=== PATIENT | female | born 1955 | race Caucasian/White ===

== ENCOUNTER → 2016-11-15 | Day surgery (SDC) | payer OTHER ==
[2016-11-10 09:52] VITALS: Ht 157.5 cm; Wt 46.4 kg
[~2016-11-15] VITALS: Ht 157.5 cm; Wt 46.4 kg
[~2016-11-15] MED LIST: ACET1TAB84 PO; AMLO-114 PO; ASPCH81X PO; B-COTAB53 PO; CALC500C70 PO; CHOL100027 PO; CINN1CAP2 PO; CLON1TAB3 PO; DEPOMEDROL INJ; FISHOIL PO; FLUT0.15 NAE; GING1CAP2 PO; GLUCTAB18 PO; LACTCAP3 PO; LEVO1TAB PO; LIDOCAINE HCL 2% 2 ML VIAL (20MG/ML) ONE; LIOT5TAB PO; MAGN1TAB19 PO; MODA100T17 PO; MONT1TAB5 PO; MULT-730 PO; NASONEX NAE; NMN10 PO; POTA1080 PO; PROPOFOL IV EMULSION 10 MG/ML 20 ML VIAL IV ONE; ROPI1TAB PO; SODIUM CHLORIDE 0.9% 500ML 500 ML IV ONE; TIZA4CAP PO; TURM1CAP4; VITA400C3 PO; [UNRECOGNIZED DRUG - CODE] PO
--- NOTE | 2016-11-15 11:37 | Endo History and Physical ---
History & Physical Date of Service: Nov 15, 2016. Chief Complaint: nausea; weight loss Referring Physician: Dr. Carrera History of Present Illness nausea and weight loss Past Medical History Other Psy. Disorders, Osteoporosis, Arthritis, Anxiety, Thyroid Disease, CVA/TIA , Depression Past Surgical History Hx Cardiac Surgery: No Hx Internal Defibrillator: No Hx Pacemaker: No Hx Abdominal Surgery: Yes (TUBAL LIGATION) Hx of Implantable Prosthesis: No Hx Post-Op Nausea and Vomiting: No Hx Cancer Surgery: No Hx Thoracic Surgery: No Hx Orthopedic: No Hx Urinary Tract Surgery: No (T AND A) Social History Smoking Status: Light Tobacco Smoker Hx Substance Use: No Hx Alcohol Use: Yes (SOBER X23 YEARS) Allergies Coded Allergies: Codeine (Verified Allergy, Mild, HIVES, 11/10/16) Morphine (Verified Allergy, Mild, "CAUSES RAGE", 11/10/16) Paroxetine (Verified Allergy, Mild, "ANGER ISSUES", 11/10/16) Venlafaxine (Verified Allergy, Mild, "ANGER ISSUES", 11/10/16) Alendronate (Verified Allergy, Unknown, "SUPERVISOR STATEMENT CLERKS DOES NOT WANT ME TO USE", 11/10/16) Aromatic Oils (Verified Allergy, Unknown, ANY WITH FLAVOR OR AROMA-CAN'T BREATHE NAUSEA AND VOMITNG, 11/15/16) Celecoxib (Verified Allergy, Unknown, "RISK FOR GI ULCERS", 11/10/16) Chloride (Verified Allergy, Unknown, "SHUTS OFF THYROID MEDICINE AND END UP IN PSYCH LEONARD", 11/10/16) Citalopram (Verified Allergy, Unknown, HALLUCINATIONS, 11/15/16) Dexamethasone (Verified Allergy, Unknown, DIDN'T WORK ON PAIN-AGGRAVATED PAIN, 11/15/16) Diclofenac (Verified Allergy, Unknown, "RISK FOR GI ULCERS", 11/10/16) Diflunisal (Verified Allergy, Unknown, "RISK FOR GI ULCERS", 11/10/16) Etodolac (Verified Allergy, Unknown, RISK FOR GI UPSET, 11/15/16) Etofamide (Verified Allergy, Unknown, "RISK FOR GI ULCERS", 11/10/16) Fenoprofen (Verified Allergy, Unknown, UNKNOWN, 11/15/16) Gabapentin (Verified Allergy, Unknown, ANAPHYLAXIS, ITCHING, AND VOMITING , 11/10/16) Indomethacin (Verified Allergy, Unknown, RISK FOR GI BLEED, 11/15/16) Iodine (Verified Allergy, Unknown, RASH, 11/15/16) Ketoprofen (Verified Allergy, Unknown, UNKNOWN, 11/15/16) Milnacipran (Verified Allergy, Unknown, KNOCKS ME OUT, 11/15/16) NSAIDs (Verified Allergy, Unknown, "RISK FOR ULCERS", 11/10/16) Nabumetone (Verified Allergy, Unknown, "RISK FOR GI ULCERS", 11/10/16) Oxaprozin (Verified Allergy, Unknown, "RISK FOR GI ULCERS", 11/10/16) Peanut Oil (Verified Allergy, Unknown, ANAPHYLAXIS,PROJECTILE VOMITING, 03/24) Piroxicam (Verified Allergy, Unknown, "RISK FOR GI ULCERS", 11/10/16) Risedronate (Verified Allergy, Unknown, "SUPERVISOR STATEMENT CLERKS DOES NOT WANT ME TO USE", 11/10/16) Soy Allergy (Verified Allergy, Unknown, unknown, 11/10/16) Sulindac (Verified Allergy, Unknown, "RISK FOR GI ULCERS", 11/10/16) Tolmetin (Verified Allergy, Unknown, "RISK FOR GI ULCERS", 11/10/16) Opioid Analgesics (Verified Adverse Reaction, Unknown, "BLACKS OUT", ) Procaine (Verified Adverse Reaction, Unknown, " I don't get numb", 11/10/16) Current Medications Reported Home Medications Medications Dose Route/Sig Max Daily Dose Days Date Category Tylenol Arthritis Ext Rel (Acetaminophen) 650 Mg Cplt 975 Mg PO TID 11/10/16 Reported Cinnamon 500 Mg Cap 500 Mg PO QAM 11/10/16 Reported [Nasonex] 2 Sprays BENJAMIN QAM 11/10/16 Reported Namenda (Memantine) 10 Mg Tab 10 Mg PO BID 11/10/16 Reported [Depomedrol] 1 Dose INJ [id number] 11/10/16 Reported Cytomel (Liothyronine Sodium) 5 Mcg Tab 5 Mcg PO QAM 11/10/16 Reported Norvasc (Amlodipine Besylate) 10 Mg Tab 10 Mg PO QAM 11/10/16 Reported Montelukast Sodium 10 Mg Tab 1 Tab PO QAM 90 11/10/16 Reported Provigil (Modafinil) 100 Mg Tab 300 Mg PO QAM 11/10/16 Reported Os-Nick 500 Plus D (Calcium/Vitamin D) Tab 1 Tab PO 1300 11/10/16 Reported Urocit-K (Potassium Citrate) 10 Meq Tab 275 Mg PO QAM 07/30/15 Reported Alive Womens 50+ (Multiple Vitamins W/ Minerals) 1 Tab Tab 1 Tab PO 1300 07/22/15 Reported B Complex (B-Complex W/ Folic Acid) 1 Tab Tab 1 Tab PO QAM 07/22/15 Reported Flonase Allergy Relief (Fluticasone Propionate (Nasal)) 50 Mcg/Act Spr 2 Sprays BENJAMIN BID 07/22/15 Reported Magnesium Oxide (Magnesium Oxide (Mg Supplement) 400 Mg Tab 1 Tab PO QPM 07/22/15 Reported Requip (Ropinirole Hydrochloride) 1 Mg Tab 2 Mg PO HS 07/22/15 Reported Synthroid (Levothyroxine Sodium) 0.137 Mg Tab 0.137 Mg PO QAM 07/22/15 Reported Zanaflex (Tizanidine HCl) 4 Mg Cap 4 Mg PO TID PRN 07/22/15 Reported Osteo Bi-Flex Regular Str (Glucosamine-Chondroitin) 1 Tab Tab 2 Tablets PO QAM 02/04/13 Reported Acidophilus (Lactobacillus) 1 Cap Cap 1 Capsules PO QAM 02/04/13 Reported Turmeric (Turmeric (Curcuma Longa)) 500 Mg Cap 1,000 Mg TID 02/04/13 Reported Vitamin C Sr (Ascorbic Acid) 500 Mg Cap 1,000 Mg PO QID 02/04/13 Reported Helen Root (Helen (Zingiber Officinalis)) 250 Mg Cap 500 Mg PO QID 02/04/13 Reported Webster-3 (Fish Oil) Oil 1 Cap PO QID 06/22/12 Reported Aspirin Chewable (Aspirin) 81 Mg Chew 81 Mg PO QPM 06/22/12 Reported Vitamin E 400 Iu (Vitamin E) 400 Unit Cap 400 Inter.unit PO QAM 06/08/12 Reported Vitamin D 1000 Unit (Cholecalciferol) 1,000 Unit Cap 2,000 Inter.unit PO QAM 06/08/12 Reported Klonopin (Clonazepam) 1 Mg Tab 1 Mg PO QID 06/08/12 Reported Vital Signs Weight (Kilograms): 46.36 Height (Feet): 5 Height (Inches): 2 Physical Exam General Appearance: WD/WN, no apparent distress Assessment and Plan EGD today
--- NOTE | 2016-11-15 12:10 | Discharge Instructions ---
Endoscopy Patient Instructions Date / Procedure(s) Performed Nov 15, 2016. EGD Allergy Information Coded Allergies: Codeine (Verified Allergy, Mild, HIVES, 11/10/16) Morphine (Verified Allergy, Mild, "CAUSES RAGE", 11/10/16) Paroxetine (Verified Allergy, Mild, "ANGER ISSUES", 11/10/16) Venlafaxine (Verified Allergy, Mild, "ANGER ISSUES", 11/10/16) Alendronate (Verified Allergy, Unknown, "PIPE FOREMAN DOES NOT WANT ME TO USE", 11/10/16) Aromatic Oils (Verified Allergy, Unknown, ANY WITH FLAVOR OR AROMA-CAN'T BREATHE NAUSEA AND VOMITNG, 11/15/16) Celecoxib (Verified Allergy, Unknown, "RISK FOR GI ULCERS", 11/10/16) Chloride (Verified Allergy, Unknown, "SHUTS OFF THYROID MEDICINE AND END UP IN PSYCH LEONARD", 11/10/16) Citalopram (Verified Allergy, Unknown, HALLUCINATIONS, 11/15/16) Dexamethasone (Verified Allergy, Unknown, DIDN'T WORK ON PAIN-AGGRAVATED PAIN, 11/15/16) Diclofenac (Verified Allergy, Unknown, "RISK FOR GI ULCERS", 11/10/16) Diflunisal (Verified Allergy, Unknown, "RISK FOR GI ULCERS", 11/10/16) Etodolac (Verified Allergy, Unknown, RISK FOR GI UPSET, 11/15/16) Etofamide (Verified Allergy, Unknown, "RISK FOR GI ULCERS", 11/10/16) Fenoprofen (Verified Allergy, Unknown, UNKNOWN, 11/15/16) Gabapentin (Verified Allergy, Unknown, ANAPHYLAXIS, ITCHING, AND VOMITING , 11/10/16) Indomethacin (Verified Allergy, Unknown, RISK FOR GI BLEED, 11/15/16) Iodine (Verified Allergy, Unknown, RASH, 11/15/16) Ketoprofen (Verified Allergy, Unknown, UNKNOWN, 11/15/16) Milnacipran (Verified Allergy, Unknown, KNOCKS ME OUT, 11/15/16) NSAIDs (Verified Allergy, Unknown, "RISK FOR ULCERS", 11/10/16) Nabumetone (Verified Allergy, Unknown, "RISK FOR GI ULCERS", 11/10/16) Oxaprozin (Verified Allergy, Unknown, "RISK FOR GI ULCERS", 11/10/16) Peanut Oil (Verified Allergy, Unknown, ANAPHYLAXIS,PROJECTILE VOMITING, 03/24) Piroxicam (Verified Allergy, Unknown, "RISK FOR GI ULCERS", 11/10/16) Risedronate (Verified Allergy, Unknown, "PIPE FOREMAN DOES NOT WANT ME TO USE", 11/10/16) Soy Allergy (Verified Allergy, Unknown, unknown, 11/10/16) Sulindac (Verified Allergy, Unknown, "RISK FOR GI ULCERS", 11/10/16) Tolmetin (Verified Allergy, Unknown, "RISK FOR GI ULCERS", 11/10/16) Opioid Analgesics (Verified Adverse Reaction, Unknown, "BLACKS OUT", ) Procaine (Verified Adverse Reaction, Unknown, " I don't get numb", 11/10/16) Discharge Date / Findings Nov 15, 2016. gastritis Medication Instructions Stopped Medication(s): stopped Tumeric and tin 5 days ago,took ASA last kylah Restart Stopped Medication(s): Ok to resume all prescription medications Stop taking tumeric. Provider Instructions Activity Restrictions - No exercising or heavy lifting for 24 hours. - Do not drink alcohol the day of the procedure. - Do not drive a car or operate machinery until the day after the procedure. - Do not make any important decisions or sign important papers in 24 hours after the procedure. Following Day: - Return to full activity which may include returning to work/school. Diet Start your diet with liquids and light foods (jello, soup, juice, toast). Then eat your usual diet if not nauseated. Treatment For Common After Affects For mild abdominal pain, bloating, or excessive gas: - Rest - Eat lightly - Lie on right side Follow-Up Information Follow-up with Dr. Dejuan Huertas as scheduled Anesthesia Information What You Should Know You have had a procedure that required some medicine to reduce anxiety and discomfort. This treatment is called moderate sedation. After receiving the treatment, you may be sleepy, but you will be able to breathe on your own. The effects of the treatment may last for several hours. Follow these instructions along with Activity/Diet recommendations noted above: * Do NOT do anything where dizziness or clumsiness would be dangerous. * Rest quietly at home today, then you can be up and about tomorrow. * Have a responsible person stay with you the rest of today. * You may have had an I.V. today. If so, you may take the dressing off later today. Recommendations Call your doctor if: * Trouble breathing * Continuous vomiting for more than 24 hours * Temperature above 101 degrees * Severe abdominal pain or bloating * Pain not relieved by pain medicine ordered * There is increased drainage or redness from any incision * A large amount of rectal bleeding greater than 2-3 tablespoons. (If you had a polyp/s removed or have hemorrhoids, a small amount of blood - from the rectum is to be expected.) * You have any unanswered questions or concerns. IN THE EVENT OF A SERIOUS EMERGENCY, GO TO THE NEAREST EMERGENCY ROOM Your discharge instructions were prepared by provider Judy Carrera. Patient Instructions Signature Page Nohemi Parra-Marco A Patient (or Guardian) Signature/Date: I have read and understand the instructions given to me by my caregivers. Caregiver/RN/Doctor Signature/Date: The above-named patient and/or guardian has received patient instructions on this date. + Original Patient Signature Page (only) stays with chart. Please make copy for patient.
--- NOTE | 2016-11-15 12:13 | GI REPORT ---
Procedure Date: 11/15/2016 11:43 AM Procedure: Upper GI endoscopy Indications: Epigastric abdominal pain, Nausea Medicines: Propofol per Anesthesia Complications: No immediate complications. Estimated blood loss: Minimal. Estimated Blood Loss: Estimated blood loss was minimal. Procedure: Pre-Anesthesia Assessment: - Prior to the procedure, a History and Physical was performed, and patient medications, allergies and sensitivities were reviewed. The patient's tolerance of previous anesthesia was reviewed. - The risks and benefits of the procedure and the sedation options and risks were discussed with the patient. All questions were answered and informed consent was obtained. - Patient identification and proposed procedure were verified prior to the procedure by the physician and the nurse. The procedure was verified in the pre-procedure area in the procedure room. - Mental Status Examination: alert and oriented. Airway Examination: normal oropharyngeal airway and neck mobility. Respiratory Examination: clear to auscultation. CV Examination: normal. Abdominal Examination: bowel sounds present, abdomen soft and non-tender, no masses or organomegaly noted. - ASA Grade Assessment: III - A patient with severe systemic disease. After obtaining informed consent, the endoscope was passed under direct vision. Throughout the procedure, the patient's blood pressure, pulse, and oxygen saturations were monitored continuously. The Scope was introduced through the mouth, and advanced to the second part of duodenum. The upper GI endoscopy was accomplished without difficulty. The patient tolerated the procedure well. Findings: The esophagus was normal. Inflammation characterized by erosions and erythema was found in the gastric body. Biopsies were taken with a cold forceps for Helicobacter pylori testing. Verification of patient identification for the specimen was done by the physician and nurse using the patient's name and date. Estimated blood loss was minimal. The examined duodenum was normal. Impression: - Normal esophagus. - Gastritis. Biopsied. - Normal examined duodenum. Recommendation: - Await pathology results. - Follow an antireflux regimen. - Continue present medications. - Return to referring physician as previously scheduled. - Discharge patient to home. Judy Carrera D.O. Judy Carrera, 11/15/2016 12:12:56 PM This report has been signed electronically. Note Initiated On: 11/15/2016 11:43 AM I attest to the content of the Intraoperative Record and orders documented therein, exceptions below
--- NOTE | 2016-11-15 12:23 | Anesthesiology Progress Note ---
Anesthesia Post Op Note Date & Time Nov 15, 2016 at 12:22 Vital Signs Vital Signs Past 12 Hours Date Time Temp Pulse Resp B/P (MAP) Pulse Ox O2 Delivery O2 Flow Rate FiO2 11/15/16 12:18 57 16 98/48 (65) 98 Room Air 11/15/16 11:44 36.8 66 20 136/58 (84) 98 Room Air Notes Mental Status: alert / awake / arousable, participated in evaluation Pt Amnestic to Procedure: Yes Nausea / Vomiting: adequately controlled Pain: adequately controlled Airway Patency, RR, SpO2: stable & adequate BP & HR: stable & adequate Hydration State: stable & adequate Anesthetic Complications: no major complications apparent
[2016-11-15 12:45] VITALS: BP 129/64; PULSE 66; O2SAT 97
== END | disposition home or self-care (01) ==
LOC: C.GI 11:22
PROVIDERS: ATTEND Internal Medicine
DX: R11.0 Nausea (principal); R63.4 Abnormal weight loss; R10.13 Epigastric pain; M81.0 Age-related osteoporosis without current pathological fracture; M19.90 Unspecified osteoarthritis, unspecified site; F32.9 Major depressive disorder, single episode, unspecified; F17.200 Nicotine dependence, unspecified, uncomplicated; Z86.73 Personal history of transient ischemic attack (TIA), and cerebral infarction without residual deficits

== ENCOUNTER → 2017-01-06 | Outpatient (CLI) | payer OTHER ==
[~2017-01-06] MED LIST changes: -B-COTAB53 PO; -LIDOCAINE HCL 2% 2 ML VIAL (20MG/ML) ONE; -NASONEX NAE; -PROPOFOL IV EMULSION 10 MG/ML 20 ML VIAL IV ONE; -SODIUM CHLORIDE 0.9% 500ML 500 ML IV ONE
[2017-01-06 13:43] LABS: THYROID STIMULATING HORMONE 0.155 uIu/ml (0.300-4.500)
[2017-01-08 10:39] LABS: T3 TOTAL 110 ng/dL (76-181)
== END | disposition home or self-care (01) ==
LOC: C.LAB1850 11:33
PROVIDERS: ATTEND Internal Medicine Endocrinology, Diabetes & Metabolism
DX: E05.00 Thyrotoxicosis with diffuse goiter without thyrotoxic crisis or storm (principal)

== ENCOUNTER → 2017-03-24 | Outpatient (CLI) | payer OTHER ==
[2017-03-24 16:01] LABS: THYROID STIMULATING HORMONE 0.989 uIu/ml (0.300-4.500)
== END | disposition home or self-care (01) ==
LOC: C.LAB1850 14:07
PROVIDERS: ATTEND Internal Medicine Endocrinology, Diabetes & Metabolism
DX: E89.0 Postprocedural hypothyroidism (principal)

== ENCOUNTER → 2017-04-24 | Outpatient (CLI) | payer OTHER ==
[2017-04-24 13:57] LABS: THYROID STIMULATING HORMONE 2.4 uIu/ml (0.300-4.500)
== END | disposition home or self-care (01) ==
LOC: C.LAB1850 12:30
PROVIDERS: ATTEND Internal Medicine Endocrinology, Diabetes & Metabolism
DX: E05.00 Thyrotoxicosis with diffuse goiter without thyrotoxic crisis or storm (principal); E89.0 Postprocedural hypothyroidism

== ENCOUNTER → 2017-07-24 | Outpatient (CLI) | payer OTHER | END | disposition home or self-care (01) | LOC: C.LAB1850 12:15 | PROVIDERS: ATTEND Internal Medicine Endocrinology, Diabetes & Metabolism | DX: E89.0 Postprocedural hypothyroidism (principal) ==

== ENCOUNTER → 2017-11-22 | Outpatient (CLI) | payer OTHER ==
[~2017-11-22] MED LIST changes: -AMLO-114 PO; +AMLO10TA3 PO; -CLON1TAB3 PO; +CLON1TAB4 PO
== END | disposition home or self-care (01) ==
LOC: C.LAB1850 14:49
PROVIDERS: ATTEND Internal Medicine Endocrinology, Diabetes & Metabolism
DX: E89.0 Postprocedural hypothyroidism (principal)

== ENCOUNTER 2019-06-26 13:01 | Inpatient (IN) ==
[2019-06-26] MEDS ORDERED: SODIUM CHLORIDE 0.9% 1000ML 1,000 ML IV SCH ×2 (13:30)
[2019-06-26 13:56] LABS: Appearance Urine Clear (Clear); Bilirubin Urine Negative (Negative); Blood Urine Negative (Negative); Color Urine Dark Yellow; Epithelial Cell Urine Auto 0-5 /lpf (0-5); Glucose Urine UA Negative (Negative); Ketones Urine 1+ (Negative); Leukocyte Esterase Urine Negative (Negative); Nitrite Urine Positive (Negative); Protein Urine Negative (Negative); RBC Urine Automated 0-4 /hpf (0-4); Specific Gravity Urine 1.022 (1.000-1.030); Urobilinogen Urine Negative (Negative); pH Urine 5.5 (4.5-7.5)
[2019-06-26] MEDS ORDERED: cefTRIAXone SODIUM 1,000 MG/50 ML BAG IV STA (14:11)
[2019-06-26 14:16] LABS: Basophils # (auto) 0.02 K/uL (0-0.2); Basophils % (auto) 0.2 %; Eosinophils # (auto) 0.02 K/uL (0-0.5); Eosinophils % (auto) 0.2 %; Hematocrit (blood only) 40.6 % (37-47); Hemoglobin 14.3 g/dL (12.0-16.0); Immature Granulocytes # (auto) 0.03 K/uL (0.00-0.02); Immature Granulocytes % (auto) 0.2 %; Lymphocytes # (auto) 2.76 K/uL (1.2-3.4); Lymphocytes % (auto) 21.1 %; Mean Corpuscular Hgb Conc 35.2 g/dL (32-36); Mean Corpuscular Volume 96.7 fL (80-100); Mean Platelet Volume 10.2 fL (7.4-10.4); Monocytes # (auto) 0.91 K/uL (0.11-0.59); Neutrophils # (auto) 9.31 K/uL (1.4-6.5); Neutrophils % (auto) 71.3 %; Platelet Count 248 K/uL (130-400); RDW Coefficient of Variation 13.2 % (11.5-14.5); RDW Standard Deviation 46.1 fL (36.4-46.3); White Blood Count 13.05 K/uL (4.8-10.8)
--- NOTE | 2019-06-26 14:16 | CT Scan Report ---
CT head/brain wo con CLINICAL HISTORY: 64 years-old Female presenting with AMS, confusion. TECHNIQUE: Multidetector CT imaging of the head was performed without the use of intravenous contrast . IV contrast: None. One or more dose lowering techniques were used consistent with the principles of ALARA (as low as reasonably achievable), including automatic exposure control, mA or kV adjustment t o individual patient size, and/or use of iterative reconstruction. COMPARISON: 02/04/2013. CT DOSE (mGy.cm): The estimated cumulative dose is 1228.53 mGy.cm. FINDINGS: Performance Instructor topogram: Unremarkable. Ventricles and sulci normal in size. No hemorrhage. Periventricular and subcortical white matter hypo attenuation, nonspecific but likely indicative of chronic small vessel ischemic change. No acute terr itorial infarct. No mass effect or midline shift. No extra-axial fluid collection. Paranasal sinuses and mastoid air cells clear. Calvarium intact. IMPRESSION: 1. Chronic small vessel ischemic change. No acute intracranial abnormality. ACT 112: Negative or not required by law. Electronically signed by: Dejuan Carney M.D. 06/26/2019 2:14 PM
--- NOTE | 2019-06-26 14:32 | Emergency Department Note ---
Entered by Liliana Webster acting as a scribe for Junior Wheeler MD ED Provider Note CHIEF COMPLAINT: Altered Mental Status HISTORY OF PRESENT ILLNESS: The patient is a 64 year old female who presents to the Emergency Room via EMS with complaints of persistent altered mental status starting at an unknown time. EMS reports that the patient's caregiver's called 911 after finding the patient lying in her own urine and altered. They state that the patient doesn't know what day it is or who the international affairs vice president is. They explain that the patient is hallucinating. 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 They add that the patient's caregiver's explained that the patient hasn't had her pain medications for the past 2 days because she "hasn't been to her doctor" and believes that she may be withdrawing from them. EMS reports that the patient received no medications for her symptoms GUEST RELATIONS EXECUTIVE. They state that the patient had 6 animals in her house that were all clean and lying around her at their time of arrival. The patient denies chest pain, abdominal pain and headaches. The HPI and ROS are limited due to AMS. REVIEW OF SYSTEMS: The HPI and ROS are limited due to AMS. PMHx/PSHx: See pertinent past medical and surgical history lists. SOCIAL HISTORY: Patient lives at home. Feels safe at home. Current everyday smoker. PHYSICAL EXAM: GENERAL: Patient is confused appearing. Awake, alert, in no distress HENT: Dry mucous membranes. Normocephalic, atraumatic. Oropharynx unremarkable. EYES: PERRL. Normal conjunctiva. Sclera non-icteric. NECK: Inspection normal. Non-tender. Supple. No nuchal rigidity. FROM. No masses. RESPIRATORY: Clear to auscultation. No wheezes. No rales. Normal respiratory effort. CARDIAC: Normal rate. Normal rhythm. No murmurs. No rubs. Extremities warm and well perfused. Pulses equal. No JVD. GI: Soft, non-distended. No tenderness to palpation. No rebound or guarding. No masses. RECTAL: Deferred. MUSCULOSKELETAL: Atraumatic. Chest examination reveals no tenderness. The back is symmetrical on inspection without obvious abnormality. There is no CVA tenderness to palpation. No joint edema. LOWER EXTREMITIES: Calves are equal size bilaterally and non-tender. No edema. No discoloration. NEURO: Altered sensorium. SKIN: No rash or jaundice noted. EMERGENCY DEPARTMENT COURSE: 1305: Past medical records reviewed. The patient was evaluated in room C7, and a complete history and physical examination were performed. 1445: The patient was reassessed. She is still confused but hemodynamically stable. 1445: I [facility] the patient's [facility] The patient will be evaluated and admitted under-[facility]. Flores [place] [facility]. The team will evaluate the patient for further management. MEDICAL DECISION MAKING: Nursing notes reviewed and agree them. Additional history obtained from EMS. The patient's history was concerning for altered mental status. Differential diagnosis: Etiologies such as infection, hypoglycemia, electrolyte abnormalities, cardiac sources, intracerebral event, toxicologic, neurologic, as well as others were entertained. Physical examination: As above. The patient had altered sensorium. She was awake, alert but very confused and disoriented. ER treatment provided: IV Lock Normal saline hydration IV Rocephin On reassessment the patient was hemodynamically stable. Diagnostics interpretation by me: ECG: Twelve-lead ECG revealed normal sinus rhythm at 82 bpm. There were inferior T wave inversions. Nonspecific anterior T wave abnormality present. Normal QRS and normal axis. No PVCs or PACs. The labs revealed a mild leukocytosis on CBC. Urinalysis concerning for infection.The patient had mild hypokalemia. Chemistry panel otherwise unremarkable. Imaging studies: Imaging of the head negative. Chest x-ray negative for acute process. Consultation: A consultation was placed with the hospitalist. The case was discussed and diagnostics were reviewed. The patient was evaluated in the ER for further treatment. IMPRESSION: AMS, Fever, Dehydration, UTI PLAN: Being Evaluated by Hosptialist The scribe's documentation has been prepared under my direction and personally reviewed by me in its entirety. I confirm that the note above accurately reflects all work, treatment, procedures, and medical decision making performed by me. Impression & Plan AMS (altered mental status), Fever, Dehydration Past Med/Surg History Medical History Bilateral carpal tunnel syndrome (Chronic) Bone spur of right ankle (Chronic) Depression with anxiety (Chronic) Fibromyalgia (Chronic 02/04/13) Hypothyroidism, postablative (Chronic) Lumbosacral radiculopathy (Chronic) Memory loss (Chronic) Narcolepsy (Chronic) Nerve damage of right foot (Acute) Peroneal nerve damage Osteoarthritis (Chronic) Osteoporosis (Chronic) Post-traumatic stress syndrome (Chronic 02/04/13) Raynaud's disease (Chronic) Restless legs syndrome (Chronic) Vitamin D deficiency (Chronic 02/04/13) Surgical History S/P ear surgery S/P tonsillectomy and adenoidectomy Status post tubal ligation Family History Mother Myocardial infarction Father Cancer Sister Myasthenia gravis Family/Other Multiple sclerosis Social History Preferred Language: Maori Feels Safe at Home: Yes Smoking Status: Current every day smoker packs per day: 1 ; Hx Alcohol Use: No Results & Data Vital Signs Vital Signs - 24 hr 06/26/19 13:01 06/26/19 13:10 06/26/19 13:16 Temperature 37.2 C Temperature Source Oral Pulse Rate 81 87 85 Pulse Rate [Apical] 81 Pulse Rate from SpO2 Sensor 86 85 Pulse Rhythm Regular Respiratory Rate 20 24 21 Respiratory Effort / Characteristics Non-Labored Spontaneous Respiratory Depth Normal Respiratory Pattern Regular Blood Pressure 152/73 H 152/73 H Blood Pressure [Left Arm] 152/73 H Blood Pressure Mean 99 93 Blood Pressure Mean [Left Arm] 99 Blood Pressure Position Lying Blood Pressure Position [Left Arm] Lying Pulse Oximetry 97 96 95 Oxygen Delivery Method Room Air Sepsis Recent Fever Within 48 Hours No Sepsis New/Unexplained Change in Mental Status No Sepsis Action Taken by Nursing No Action Required 06/26/19 13:30 06/26/19 13:31 06/26/19 13:45 Temperature Temperature Source Pulse Rate 84 82 81 Pulse Rate [Apical] Pulse Rate from SpO2 Sensor 85 82 80 Pulse Rhythm Respiratory Rate 20 21 26 H Respiratory Effort / Characteristics Respiratory Depth Respiratory Pattern Blood Pressure 148/73 H Blood Pressure [Left Arm] Blood Pressure Mean 97 Blood Pressure Mean [Left Arm] Blood Pressure Position Blood Pressure Position [Left Arm] Pulse Oximetry 94 94 96 Oxygen Delivery Method Sepsis Recent Fever Within 48 Hours Sepsis New/Unexplained Change in Mental Status Sepsis Action Taken by Nursing 06/26/19 14:03 06/26/19 14:15 06/26/19 14:30 Temperature Temperature Source Pulse Rate 82 80 85 Pulse Rate [Apical] Pulse Rate from SpO2 Sensor 81 81 85 Pulse Rhythm Respiratory Rate 23 23 24 Respiratory Effort / Characteristics Respiratory Depth Respiratory Pattern Blood Pressure 162/71 H Blood Pressure [Left Arm] Blood Pressure Mean 97 Blood Pressure Mean [Left Arm] Blood Pressure Position Blood Pressure Position [Left Arm] Pulse Oximetry 93 96 97 Oxygen Delivery Method Sepsis Recent Fever Within 48 Hours Sepsis New/Unexplained Change in Mental Status Sepsis Action Taken by Nursing 06/26/19 14:31 06/26/19 14:45 06/26/19 15:00 Temperature Temperature Source Pulse Rate 88 86 85 Pulse Rate [Apical] Pulse Rate from SpO2 Sensor 86 87 86 Pulse Rhythm Respiratory Rate 16 22 21 Respiratory Effort / Characteristics Respiratory Depth Respiratory Pattern Blood Pressure 137/74 Blood Pressure [Left Arm] Blood Pressure Mean 109 Blood Pressure Mean [Left Arm] Blood Pressure Position Blood Pressure Position [Left Arm] Pulse Oximetry 97 96 97 Oxygen Delivery Method Sepsis Recent Fever Within 48 Hours Sepsis New/Unexplained Change in Mental Status Sepsis Action Taken by Nursing 06/26/19 15:30 Temperature Temperature Source Pulse Rate 87 Pulse Rate [Apical] Pulse Rate from SpO2 Sensor 88 Pulse Rhythm Respiratory Rate 20 Respiratory Effort / Characteristics Respiratory Depth Respiratory Pattern Blood Pressure 159/66 H Blood Pressure [Left Arm] Blood Pressure Mean 99 Blood Pressure Mean [Left Arm] Blood Pressure Position Blood Pressure Position [Left Arm] Pulse Oximetry 96 Oxygen Delivery Method Sepsis Recent Fever Within 48 Hours Sepsis New/Unexplained Change in Mental Status Sepsis Action Taken by [facility] Medications Current Medication List: was personally reviewed by me Laboratory Data Attestation: I reviewed the patient's lab results. Result diagrams: 06/26/19 13:45 06/26/19 13:45 Lab Results 06/26/19 06/26/19 06/26/19 Range/Units 13:30 13:45 13:45 WBC 13.05 H (4.8-10.8) K/uL RBC 4.20 (4.2-5.4) M/uL Hgb 14.3 (12.0-16.0) g/dL Hct 40.6 (37-47) % MCV 96.7 (80-100) fL MCH 34.0 (25-34) pg MCHC 35.2 (32-36) g/dL RDW Std Deviation 46.1 (36.4-46.3) fL RDW Coeff of Roel 13.2 (11.5-14.5) % Plt Count 248 (130-400) K/uL MPV 10.2 (7.4-10.4) fL Immature Gran % (Auto) 0.2 % Neut % (Auto) 71.3 % Lymph % (Auto) 21.1 % [place] % (Auto) 7.0 % Eos % (Auto) 0.2 % Baso % (Auto) 0.2 % Immature Gran # (Auto) 0.03 H (0.00-0.02) K/uL Neut # (Auto) 9.31 H (1.4-6.5) K/uL Lymph # (Auto) 2.76 (1.2-3.4) K/uL [place] # (Auto) 0.91 H (0.11-0.59) K/uL Eos # (Auto) 0.02 (0-0.5) K/uL Baso # (Auto) 0.02 (0-0.2) K/uL Sodium (136-145) mmol/L Potassium (3.5-5.1) mmol/L Chloride (98-107) mmol/L Carbon Dioxide (21-32) mmol/L Anion Gap (3-11) BUN (7-18) mg/dl Creatinine (0.6-1.2) mg/dl Est Cr Clr Drug Dosing Est GFR ( Amer) Est GFR (Non-Af Amer) BUN/Creatinine Ratio (10-20) Glucose (70-99) mg/dl Lactate 1.0 (0.4-2.0) mmol/L Calcium (8.5-10.1) mg/dl Magnesium (1.8-2.4) mg/dl Total Bilirubin (0.2-1) mg/dl AST (15-37) U/L ALT (12-78) U/L Alkaline Phosphatase (45-117) U/L Ammonia (11-32) umol/L Troponin I (0-0.045) ng/ml Total Protein (6.4-8.2) gm/dl Albumin (3.4-5.0) gm/dl Globulin (2.5-4.0) gm/dl Albumin/Globulin Ratio (0.9-2) TSH (0.300-4.500) uIu/ml Free T4 (0.8-1.6) ng/dl Urine Color Dark Yellow Urine Appearance Clear (Clear) Urine pH 5.5 (4.5-7.5) Ur Specific [place] 1.022 (1.000-1.030) Urine Protein Negative (Negative) Urine Glucose (UA) Negative (Negative) Urine Ketones 1+ H (Negative) Urine Blood Negative (Negative) Urine Nitrite Positive A (Negative) Urine Bilirubin Negative (Negative) Urine Urobilinogen Negative (Negative) Ur Leukocyte Esterase Negative (Negative) Urine WBC (Auto) 5-10 H (0-5) /hpf Urine RBC (Auto) 0-4 (0-4) /hpf U Hyaline Cast (Auto) 1-5 (0-5) /lpf U Epithel Cells (Auto) 0-5 (0-5) /lpf Urine Bacteria (Auto) 2+ H (Negative) Urine Yeast Not Reportable Influenza Type A Ag (Neg) Influenza Type B Ag (Neg) 06/26/19 06/26/19 06/26/19 Range/Units 13:45 13:45 14:08 WBC (4.8-10.8) K/uL RBC (4.2-5.4) M/uL Hgb (12.0-16.0) g/dL Hct (37-47) % MCV (80-100) fL MCH (25-34) pg MCHC (32-36) g/dL RDW Std Deviation (36.4-46.3) fL RDW Coeff of Roel (11.5-14.5) % Plt Count (130-400) K/uL MPV (7.4-10.4) fL Immature Gran % (Auto) % Neut % (Auto) % Lymph % (Auto) % [place] % (Auto) % Eos % (Auto) % Baso % (Auto) % Immature Gran # (Auto) (0.00-0.02) K/uL Neut # (Auto) (1.4-6.5) K/uL Lymph # (Auto) (1.2-3.4) K/uL [place] # (Auto) (0.11-0.59) K/uL Eos # (Auto) (0-0.5) K/uL Baso # (Auto) (0-0.2) K/uL Sodium 140 (136-145) mmol/L Potassium 3.0 L (3.5-5.1) mmol/L Chloride 106 (98-107) mmol/L Carbon Dioxide 24 (21-32) mmol/L Anion Gap 9.0 (3-11) BUN 22 H (7-18) mg/dl Creatinine 0.69 (0.6-1.2) mg/dl Est Cr Clr Drug Dosing Not Reportable Est GFR ( Amer) 106.6 Est GFR (Non-Af Amer) 92.0 BUN/Creatinine Ratio 32.2 H (10-20) Glucose 119 H (70-99) mg/dl Lactate (0.4-2.0) mmol/L Calcium 9.8 (8.5-10.1) mg/dl Magnesium 2.0 (1.8-2.4) mg/dl Total Bilirubin 0.4 (0.2-1) mg/dl AST 11 L (15-37) U/L ALT 20 (12-78) U/L Alkaline Phosphatase 82 (45-117) U/L Ammonia < 10.0 L (11-32) umol/L Troponin I 0.025 (0-0.045) ng/ml Total Protein 7.7 (6.4-8.2) gm/dl Albumin 3.3 L (3.4-5.0) gm/dl Globulin 4.4 H (2.5-4.0) gm/dl Albumin/Globulin Ratio 0.7 L (0.9-2) TSH 7.220 H (0.300-4.500) uIu/ml Free T4 0.83 (0.8-1.6) ng/dl Urine Color Urine Appearance (Clear) Urine pH (4.5-7.5) Ur Specific [place] (1.000-1.030) Urine Protein (Negative) Urine Glucose (UA) (Negative) Urine Ketones (Negative) Urine Blood (Negative) Urine Nitrite (Negative) Urine Bilirubin (Negative) Urine Urobilinogen (Negative) Ur Leukocyte Esterase (Negative) Urine WBC (Auto) (0-5) /hpf Urine RBC (Auto) (0-4) /hpf U Hyaline Cast (Auto) (0-5) /lpf U Epithel Cells (Auto) (0-5) /lpf Urine Bacteria (Auto) (Negative) Urine Yeast Influenza Type A Ag Neg for Influ A (Neg) Influenza Type B Ag Neg for Influ B (Neg) Administered Medications Sodium Chloride (Nss 1000ml) 1,000 mls @ 125 mls/hr IV .Q8H AMEE Stop: 06/26/19 21:29 Last Admin: 06/26/19 13:57 Dose: 125 mls/hr Documented by: [id number] Discontinued Medications Sodium Chloride (Nss 1000ml) 1,000 mls @ 999 mls/hr IV .Q1H1M AMEE Stop: 06/26/19 14:30 Last Infusion: 06/26/19 14:58 Dose: 0 mls/hr Documented by: [id number] Admin: 06/26/19 13:57 Dose: 999 mls/hr Documented by: [id number] Ceftriaxone Sodium (Rocephin) 1,000 mg in 50 mls @ 100 mls/hr IV NOW STA Stop: 06/26/19 14:40 Last Admin: 06/26/19 15:03 Dose: 100 mls/hr Documented by: [id number] Potassium Chloride (K Michele / Wtr) 10 meq in 100 mls @ 100 mls/hr IV ONE ONE Stop: 06/26/19 15:56 Last Admin: 06/26/19 15:54 Dose: 100 mls/hr Documented by: [id number] Imaging Data Radiologist's Impression: Radiology results as stated below per my review and the radiologist's interpretation: Blood Pressure Blood Pressure Findings: Low blood pressure Blood Pressure Disposition: Referred to patients primary care provider Discharge Plan Visit Data Chief Complaint: Altered Mental Status ED Provider: Junior Wheeler Discharge Problem: AMS (altered mental status), Fever, Dehydration Patient Disposition: Being Evaluated by Hospitalist Forms Stand Alone Forms: [facility] [employer] Prescriptions Prescriptions: No Action clonazepam 1 mg tablet 1 mg PO QID 90 Days Qty: 360 RF: 1 ropinirole 4 mg tablet 4 mg PO HS Qty: 30 RF: 0 vitamin B complex capsule 1 cap PO DAILY RF: 0 memantine 10 mg tablet 10 mg PO BID RF: 0 garlic 1,250 mg tablet 3,000 mg PO DAILY RF: 0 ascorbic acid (vitamin C) 1,000 mg tablet 1 gm PO QID RF: 0 cholecalciferol (vitamin D3) 1,000 unit capsule 1,000 units PO DAILY RF: 0 Prolia 60 mg/mL syringe 60 mg SQ Q3M RF: 0 tin (Zingiber officinalis) 550 mg capsule 550 mg PO QID RF: 0 Lactobacillus acidophilus 1 billion cell tablet 1 cell PO DAILY RF: 0 magnesium oxide 400 mg (241.3 mg magnesium) tablet 400 mg PO DAILY RF: 0 montelukast [Singulair] 10 mg tablet 10 mg PO DAILY RF: 0 omega-3 acid ethyl esters 1 gram capsule 1 cap PO QID RF: 0 potassium citrate 15 mEq tablet extended release 15 meq PO DAILY RF: 0 vitamin E succinate 400 unit tablet 400 units PO DAILY RF: 0 tizanidine 4 mg tablet 4 mg PO TID RF: 0 Alive Once Daily Women 50 Plus 800-100 mcg tablet 1 tab PO DAILY RF: 0 mometasone [Nasonex] 50 mcg/actuation spray,non-aerosol 2 sprays intranasal DAILY RF: 0 modafinil 200 mg tablet 400 mg PO DAILY RF: 0 thyroid (pork) 90 mg tablet 90 mg PO MOWEFR RF: 0 thyroid (pork) 60 mg tablet 60 mg PO SUTUTHSA RF: 0 aspirin 81 mg Tablet,Delayed Release (Dr/Ec) 81 mg PO DAILY RF: 0 diltiazem HCl [Cartia XT] 120 mg capsule,extended release 24hr 120 mg PO DAILY RF: 0 Referrals Referrals: Dejuan Huertas MD [Primary Care Provider] - Discharge Problem: AMS (altered mental status) Qualifiers: Altered mental status type: unspecified Qualified Code(s): R41.82 - Altered mental status, unspecified Fever Qualifiers: Fever type: unspecified Qualified Code(s): R50.9 - Fever, unspecified The scribe's documentation has been prepared under my direction and personally reviewed by me in its entirety. I confirm that the note above accurately reflects all work, treatment, procedures, and medical decision making performed by me.
[2019-06-26 14:33] LABS: Alanine Aminotransferase 20 U/L (12-78); Albumin Level 3.3 gm/dl (3.4-5.0); Aspartate Aminotransferase 11 U/L (15-37); BUN Creatinine Ratio 32.2 (10-20); Blood Urea Nitrogen 22 mg/dl (7-18); Calcium 9.8 mg/dl (8.5-10.1); Carbon Dioxide 24 mmol/L (21-32); Chloride 106 mmol/L (98-107); Est GFR (African American) 106.6; Glucose 119 mg/dl (70-99); Sodium 140 mmol/L (136-145)
[2019-06-26 14:35] LABS: Bacteria Urine Automated 2+ (Negative)
--- NOTE | 2019-06-26 14:38 | XRay Report ---
XR chest 1V portable CLINICAL HISTORY: 64 years-old Female presenting with weakness. TECHNIQUE: Portable upright AP view of the chest was obtained. COMPARISON: 03/04/2009. FINDINGS: Atherosclerosis of the aortic arch. Cardiac silhouette normal in size. Heterogeneity lung parenchyma. Lungs mildly hyperinflated. No focal lung opacity. No large effusion or pneumothorax. Osseous struct ures normal. Upper abdomen normal. IMPRESSION: 1. Questionable underlying emphysema. No focal infiltrate to suggest pneumonia. ACT 112: Negative or not required by law. Electronically signed by: Dejuan Carney M.D. 06/26/2019 2:37 PM
[2019-06-26 14:44] LABS: Albumin Globulin Ratio 0.7 (0.9-2); Alkaline Phosphatase 82 U/L (45-117); Bilirubin,Total 0.4 mg/dl (0.2-1); Globulin 4.4 gm/dl (2.5-4.0); Total Protein 7.7 gm/dl (6.4-8.2); Troponin I 0.025 ng/ml (0-0.045)
[2019-06-26 14:56] LABS: T4 Free Thyroxine 0.83 ng/dl (0.8-1.6)
[2019-06-26] MEDS ORDERED: POTASSIUM CHLORIDE / WTR 10 MEQ/100 ML PLCT IV ONE (14:57)
--- NOTE | 2019-06-26 15:52 | History & Physical Report ---
Date of Service June 26, 2019 Assessment & Plan (1) Dehydration: Admitted with failure to thrive, severe dehydration, very poor intake, had only few full of applesauce in last 2 days Patient started with IV fluids, Chronic urinary incontinence/ Positive UA: Urine nitrite positive, positive ketone, negative urine leukocytosis Given IV Rocephin in the ER, will continue Follow urine culture Hypothyroidism: TSH elevated 7.2 Normal free T4 Confusion/delirium/metabolic encephalopathy Possible secondary to relation of dehydration/UTI Continue to correct electrolytes, IV fluids for dehydration antibiotic as out lined above History of schizoaffective disorder: His risk for sundowning, acute hospital delirium Observe fall precaution CODE STATUS: Does not have the POA or living will Full CODE STATUS Disposition: Patient lives with her ex-, presented with failure to thrive PT OT eval requested Patient may need short-term rehab versus placement Social service consulted for discharge planning History of Present Illness Primary Care Provider: Dejuan Huertas MD This is a 64-year-old female who was found at home confused, lying in her urine, Information obtained from patient's ex- was present at bedside, patient was too confused, delirious to provide any meaningful history As per the , they have been for a long time ago, patient still lives in the same house, works, but provides care when at home Patient also has aid help with ADLs Patient's ex- helped with her meal day before yesterday, changed bed linens and padding(patient is incontinent at baseline) Patient stayed in bed yesterday, aide came to visit her, patient said that she was doing okay and refused help This morning she was found to be confused and lethargic, was brought to the ER Patient clinically appears to be very dehydrated, UA positive Will be admitted to medical floor for IV hydration, IV antibiotic Allergies Allergy/AdvReac Type Severity Reaction Status Date / Time codeine Allergy Mild HIVES Verified 06/26/19 14:29 morphine Allergy Mild "CAUSES Verified 06/26/19 14:29 RAGE" paroxetine Allergy Mild "ANGER Verified 06/26/19 14:29 ISSUES" venlafaxine Allergy Mild "ANGER Verified 06/26/19 14:29 ISSUES" alendronate sodium Allergy Unknown "VAT HOUSE SUPERVISOR Verified 06/26/19 14:29 DOES NOT WANT ME TO USE" capsaicin Allergy Unknown "RISK FOR Verified 06/26/19 14:29 GI ULCERS" celecoxib Allergy Unknown "RISK FOR Verified 06/26/19 14:29 GI ULCERS" citalopram Allergy Unknown HALLUCINATI Verified 06/26/19 14:29 ONS dexamethasone Allergy Unknown DIDN'T Verified 06/26/19 14:29 WORK ON PAIN-AGGRAVATED PAIN Diclopak Allergy Unknown "RISK FOR Verified 11/15/16 09:27 GI ULCERS" diflunisal Allergy Unknown "RISK FOR Verified 06/26/19 14:29 GI ULCERS" etodolac Allergy Unknown RISK FOR Verified 06/26/19 14:29 GI UPSET etofamide Allergy Unknown "RISK FOR Verified 06/26/19 14:29 GI ULCERS" fenoprofen Allergy Unknown UNKNOWN Verified 06/26/19 14:29 gabapentin Allergy Unknown ANAPHYLAXIS, Verified 06/26/19 14:29 ITCHING, AND VOMITING indomethacin Allergy Unknown RISK FOR Verified 06/26/19 14:29 GI BLEED iodine Allergy Unknown RASH Verified 06/26/19 14:29 ketoprofen Allergy Unknown UNKNOWN Verified 06/26/19 14:29 milnacipran Allergy Unknown KNOCKS ME Verified 06/26/19 14:29 OUT nabumetone Allergy Unknown "RISK FOR Verified 06/26/19 14:29 GI ULCERS" NSAIDS (Non-Steroidal Allergy Unknown "RISK FOR Verified 06/26/19 14:29 Anti-Inflamma ULCERS" oxaprozin Allergy Unknown "RISK FOR Verified 06/26/19 14:29 GI ULCERS" peanut oil Allergy Unknown ANAPHYLAXIS,PROJECTILE Verified 06/26/19 14:29 VOMITING piroxicam Allergy Unknown "RISK FOR Verified 06/26/19 14:29 GI ULCERS" risedronate sodium Allergy Unknown "VAT HOUSE SUPERVISOR Verified 06/26/19 14:29 DOES NOT WANT ME TO USE" soy Allergy Unknown unknown Verified 06/26/19 14:29 sulindac Allergy Unknown "RISK FOR Verified 06/26/19 14:29 GI ULCERS" tolmetin Allergy Unknown "RISK FOR Verified 06/26/19 14:29 GI ULCERS" amlodipine Allergy Verified 06/26/19 14:29 [place] And Derivatives Allergy Verified 06/26/19 14:29 diclofenac Allergy Verified 06/26/19 14:29 flurbiprofen Allergy Verified 06/26/19 14:29 ibuprofen Allergy Verified 06/26/19 14:29 Iodine and Iodide Containing Allergy Verified 06/26/19 14:29 Produc ketorolac Allergy Verified 06/26/19 14:29 mefenamic acid Allergy Verified 06/26/19 14:29 meloxicam Allergy Verified 06/26/19 14:29 Opioids - Morphine Analogues Allergy Verified 06/26/19 14:29 pregabalin [From Lyrica] Allergy Verified 06/26/19 14:29 sertraline [From Zoloft] Allergy Verified 06/26/19 14:29 sodium phosphate Allergy Verified 06/26/19 14:29 procaine AdvReac Unknown " I don't Verified 06/26/19 14:29 get numb" Aromatic Oils Allergy Unknown ANY WITH Uncoded 06/26/19 14:29 FLAVOR OR AROMA-CAN'T BREATHE NAUSEA AND VOMITNG Chloride Allergy Unknown "SHUTS OFF Uncoded 06/26/19 14:29 THYROID MEDICINE AND END UP IN PSYCH [facility]" Opioid Analgesics AdvReac Unknown "BLACKS Uncoded 06/26/19 14:29 OUT" Home Medications Home Medications Medication Instructions Recorded Confirmed Type garlic 1250 mg tablet 3,000 mg PO DAILY 01/08/19 06/26/19 History memantine 10 mg tablet 10 mg PO BID tab 01/08/19 06/26/19 History ropinirole 4 mg tablet 4 mg PO HS #30 tab 01/08/19 06/26/19 History vitamin B complex 1 cap PO DAILY 01/08/19 06/26/19 History Lactobacillus acidophilus 1 1 cell PO DAILY tab 02/20/19 06/26/19 History billion cell tablet ascorbic acid (vitamin C) 1,000 mg 1 gm PO QID tab 02/20/19 06/26/19 History tablet cholecalciferol (vitamin D3) 25 1,000 units PO DAILY cap 02/20/19 06/26/19 History mcg (1,000 unit) capsule denosumab 60 mg/mL subcutaneous 60 mg SQ Q3M ml 02/20/19 06/26/19 History syringe tin (Zingiber officinalis) 550 550 mg PO QID cap 02/20/19 06/26/19 History mg capsule magnesium oxide 400 mg (241.3 mg 400 mg PO DAILY tab 02/20/19 06/26/19 History magnesium) tablet modafinil 200 mg tablet 400 mg PO DAILY tab 02/20/19 06/26/19 History mometasone 50 mcg/actuation nasal 2 sprays INTRANASAL DAILY gm 02/20/19 06/26/19 History spray montelukast 10 mg tablet 10 mg PO DAILY tab 02/20/19 06/26/19 History multivit,mineral-folic acid 800 1 tab PO DAILY tab 02/20/19 06/26/19 History mcg-vit K 100 mcg-herbal no.289 tablet omega-3 acid ethyl esters 1 gram 1 cap PO QID cap 02/20/19 06/26/19 History capsule potassium citrate 15 mEq (1,620 15 meq PO DAILY tab 02/20/19 06/26/19 History mg) tablet,extended release tizanidine 4 mg tablet 4 mg PO TID tab 02/20/19 06/26/19 History vitamin E succinate 400 unit tablet 400 units PO DAILY tab 02/20/19 06/26/19 History thyroid (pork) 60 mg tablet 60 mg PO SUTUTHSA tab 03/13/19 06/26/19 History thyroid (pork) 90 mg tablet 90 mg PO MOWEFR tab 03/13/19 06/26/19 History clonazepam 1 mg tablet 1 mg PO QID 90 Days #360 tab 06/24/19 06/26/19 Rx aspirin 81 mg PO DAILY 06/26/19 06/26/19 History diltiazem HCl [Cartia XT] 120 mg PO DAILY 06/26/19 06/26/19 History Past Med/Surg History Medical History Bilateral carpal tunnel syndrome (Chronic) Bone spur of right ankle (Chronic) Depression with anxiety (Chronic) Fibromyalgia (Chronic 02/04/13) Hypothyroidism, postablative (Chronic) Lumbosacral radiculopathy (Chronic) Memory loss (Chronic) Narcolepsy (Chronic) Nerve damage of right foot (Acute) Peroneal nerve damage Osteoarthritis (Chronic) Osteoporosis (Chronic) Post-traumatic stress syndrome (Chronic 02/04/13) Raynaud's disease (Chronic) Restless legs syndrome (Chronic) Vitamin D deficiency (Chronic 02/04/13) Surgical History S/P ear surgery S/P tonsillectomy and adenoidectomy Status post tubal ligation Family History Mother Myocardial infarction Father Cancer Sister Myasthenia gravis Family/Other Multiple sclerosis Social History Preferred Language: Yoruba Feels Safe at Home: Yes Smoking Status: Current every day smoker packs per day: 1 ; Hx Alcohol Use: No Review of Systems Review of Systems: Unobtainable due to cognitive status (Very confused and delirious) Physical Exam Constitutional: + thin and + altered mental status (Confused, very dehydrated); not ill appearing Eyes: + anicteric sclerae ENMT: Mouth: + oral mucosal abnormality Very dry oral mucosa Neck: trachea midline, no thyromegaly Respiratory: normal respiratory effort, lungs clear to auscultation Cardiovascular: RRR, no murmur, no edema Gastrointestinal (Abdomen): Inspection/Auscultation: normal bowel sounds Percussion/Palpation: abdomen soft; abdomen nontender Musculoskeletal: Head/Neck/Chest: normocephalic and head atraumatic Very poor skin turgor, Skin: + abnormal turgor (Extremely dry, very poor skin turgor) Neurologic: moves all extremities; no focal motor deficits Moving all extremities Psychiatric: Orientation: alert (Is oriented, confused,) Results & Data Vital Signs (Past 12 Hours) Vital Signs Temp Pulse Pulse Resp BP BP Pulse Ox 06/26/19 14:45 86 22 96 06/26/19 14:31 88 16 97 06/26/19 14:30 85 24 162/71 H 97 06/26/19 14:15 80 23 96 06/26/19 14:03 82 23 93 06/26/19 13:45 81 26 H 96 06/26/19 13:31 82 21 94 06/26/19 13:30 84 20 148/73 H 94 06/26/19 13:16 85 21 95 06/26/19 13:10 87 24 152/73 H 96 06/26/19 13:01 37.2 C 81 81 20 152/73 H 152/73 H 97
[2019-06-26] MEDS ORDERED: POLYETHYLENE (MIRALAX) 17 GM PACK PO PRN (17:00)
[2019-06-26] MEDS ORDERED: MAGNESIUM HYDROXIDE SUSP 30 ML UDC PO PRN (17:00)
[2019-06-26] MEDS ORDERED: NON-FORMULARY MEDICATION (Denosumab 60 MG) SQ SCH (17:00)
[2019-06-26] MEDS ORDERED: ALUMINUM/MAGNESIUM SUSP 30 ML UDC PO PRN (17:00)
[2019-06-26] MEDS ORDERED: GINGER 550 MG PO SCH (17:00)
[2019-06-26] MEDS ORDERED: ONDANSETRON INJ 2 MG/ML 2 ML VIAL IV PRN (17:00)
[2019-06-26] MEDS ORDERED: ACETAMINOPHEN 325 MG TAB PO PRN (17:00)
[2019-06-26] MEDS: POTASSIUM CHLORIDE 20 MEQ in SODIUM CHLORIDE 0.9% 1000ML 1,000 ML IV SCH (17:24)
[2019-06-26 17:47] LABS: Hematocrit (blood only) 38.8 % (37-47); Hemoglobin 13.5 g/dL (12.0-16.0); Mean Corpuscular Hemoglobin 33.8 pg (25-34); Mean Corpuscular Hgb Conc 34.8 g/dL (32-36); Mean Corpuscular Volume 97.2 fL (80-100); Mean Platelet Volume 9.8 fL (7.4-10.4); Platelet Count 227 K/uL (130-400); RDW Coefficient of Variation 13.1 % (11.5-14.5); RDW Standard Deviation 46.2 fL (36.4-46.3); Red Blood Count 3.99 M/uL (4.2-5.4); White Blood Count 11.84 K/uL (4.8-10.8)
[2019-06-26 18:03] LABS: Blood Urea Nitrogen 18 mg/dl (7-18); Calcium 8.8 mg/dl (8.5-10.1); Carbon Dioxide 25 mmol/L (21-32); Chloride 110 mmol/L (98-107); Est GFR (African American) 106.6; Glucose 93 mg/dl (70-99); Sodium 141 mmol/L (136-145)
[2019-06-26] MEDS: ASCORBIC ACID 500 MG TAB PO SCH ×2 (18:58→20:56)
[2019-06-26] MEDS: clonazePAM 1 MG TAB PO SCH ×2 (18:58→20:53)
[2019-06-26] MEDS: MEMANTINE HCL 10 MG TAB PO SCH (20:53)
[2019-06-26] MEDS: LACTOBACILLUS ACIDOPHILUS (FLORANEX) TAB PO SCH (20:53)
[2019-06-26] MEDS: ROPINIROLE HCL 1 MG TABLET PO SCH (20:54)
[2019-06-26] MEDS: OMEGA-3 (PURIFIED FISH OIL) 1 GM CAP PO SCH (20:54)
[2019-06-26] MEDS: TIZANIDINE HCL 4 MG TABLET PO SCH (20:55)
[2019-06-26] MEDS: MONTELUKAST SODIUM 10 MG TABLET PO SCH (20:55)
[2019-06-26] MEDS ORDERED: PHENAZOPYRIDINE HCL 200 MG TAB PO PRN (21:38)
[2019-06-27] MEDS: POTASSIUM CHLORIDE 20 MEQ in SODIUM CHLORIDE 0.9% 1000ML 1,000 ML IV SCH ×3 (05:09→13:25)
--- NOTE | 2019-06-27 06:17 | Electrocardiogram Report ---
Test Reason : Blood Pressure : / mmHG Vent. Rate : 082 BPM Atrial Rate : 082 BPM P-R Int : 124 ms QRS Dur : 072 ms QT Int : 398 ms P-R-T Axes : 067 040 -53 degrees QTc Int : 464 ms Poor data quality, interpretation may be adversely affected Normal sinus rhythm Possible Left atrial enlargement Abnormal ECG When compared with ECG of 14-DEC-2013 15:58, T wave inversion now evident in Inferior leads Nonspecific T wave abnormality now evident in Anterior leads Confirmed by Benji Salazar ([id number]) on 06/27/2019 6:17:22 AM Referred By: ED Confirmed By:Benji Salazar
[2019-06-27] MEDS: LACTOBACILLUS ACIDOPHILUS (FLORANEX) TAB PO SCH ×3 (08:21→17:01)
[2019-06-27] MEDS: dilTIAZem HCL 120 MG CAPCR PO SCH (08:22)
[2019-06-27] MEDS: ASPIRIN 81 MG ECTAB PO SCH (08:23)
[2019-06-27] MEDS: CEROVITE ADV FORMULA TAB PO SCH (08:24)
[2019-06-27] MEDS: FLUTICASONE PROPIONATE NA SPR 16 GM BTL NAE SCH (08:24)
[2019-06-27] MEDS: MAGNESIUM OXIDE 400 MG TAB PO SCH (08:24)
[2019-06-27] MEDS: TOCOPHERYL, DL-ALPHA 400 UNITS CAP PO SCH (08:25)
[2019-06-27] MEDS: OMEGA-3 (PURIFIED FISH OIL) 1 GM CAP PO SCH ×2 (08:25→22:05)
[2019-06-27] MEDS: VITAMIN B COMPLEX TAB PO SCH (08:25)
[2019-06-27] MEDS: TIZANIDINE HCL 4 MG TABLET PO SCH ×3 (08:25→22:03)
[2019-06-27] MEDS: MEMANTINE HCL 10 MG TAB PO SCH ×2 (08:25→22:04)
[2019-06-27] MEDS: ASCORBIC ACID 500 MG TAB PO SCH ×4 (08:25→22:05)
[2019-06-27] MEDS: POTASSIUM CITRATE 10 MEQ TAB PO SCH (08:26)
[2019-06-27] MEDS: cefTRIAXone SODIUM 2,000 MG in DEXTROSE 5% 50 ML IV SCH (08:26)
[2019-06-27] MEDS: CHOLECALCIFEROL 1,000 UNITS 25 MCG TAB PO SCH (08:26)
[2019-06-27] MEDS: clonazePAM 1 MG TAB PO SCH ×4 (08:30→22:03)
[2019-06-27] MEDS: modafiniL 100 MG TAB PO SCH (08:30)
[2019-06-27 08:39] LABS: Hematocrit (blood only) 35.8 % (37-47); Mean Corpuscular Hemoglobin 33.1 pg (25-34); Mean Corpuscular Hgb Conc 33.5 g/dL (32-36); Mean Corpuscular Volume 98.6 fL (80-100); Mean Platelet Volume 10.1 fL (7.4-10.4); Platelet Count 202 K/uL (130-400); RDW Coefficient of Variation 13.2 % (11.5-14.5); RDW Standard Deviation 47.3 fL (36.4-46.3); Red Blood Count 3.63 M/uL (4.2-5.4); White Blood Count 10.36 K/uL (4.8-10.8)
[2019-06-27] MEDS ORDERED: FLUTICASONE PROPIONATE NA SPR 16 GM BTL NAE SCH (09:00)
[2019-06-27] MEDS ORDERED: cefTRIAXone SODIUM 2,000 MG in DEXTROSE 5% 70 ML IV SCH (09:00)
[2019-06-27] MEDS ORDERED: ARMOUR THYROID 30 MG TAB PO SCH (09:00)
[2019-06-27] MEDS ORDERED: GARLIC PO SCH (09:00)
[2019-06-27 09:12] LABS: BUN Creatinine Ratio 22.3 (10-20); Blood Urea Nitrogen 13 mg/dl (7-18); Calcium 8.9 mg/dl (8.5-10.1); Carbon Dioxide 25 mmol/L (21-32); Chloride 112 mmol/L (98-107); Est GFR (African American) 112.3; Est GFR (Non-African American) 96.9; Glucose 65 mg/dl (70-99); Potassium 3.3 mmol/L (3.5-5.1); Sodium 143 mmol/L (136-145)
[2019-06-27] MEDS ORDERED: POTASSIUM CHLORIDE 20 MEQ TABCR PO STA (15:44)
[2019-06-27] MEDS ORDERED: QUETIAPINE FUMARATE 25 MG TABLET PO PRN (16:27)
--- NOTE | 2019-06-27 16:34 | Hospitalist Progress Note ---
Date of Service June 27, 2019 Assessment & Plan (1) Dehydration: Admitted with failure to thrive, severe dehydration, very poor intake, had only few full of applesauce in last 2 days Clinically much improved after IV hydration, more alert and awake, baseline psychiatric issues, paranoid schizophrenia Patient has very labile mood, Patient ex- present at bedside, patient's patient still having confusion/agitation Fall from her baseline Positive UA: Urine nitrite positive, positive ketone, negative urine leukocytosis Continue IV Rocephin Follow urine culture Hypothyroidism: TSH elevated 7.2/possible sick thyroid symptoms Normal free T4 Confusion/delirium/metabolic encephalopathy Possible secondary to relation of dehydration/UTI Patient is more awake and alert after IV hydration, still remains confused, delirious Continue to correct electrolytes, IV fluids for dehydration antibiotic as outlined above History of schizoaffective disorder: Showing evidence of episodes of agitation, ordered for PRN Seroquel His risk for sundowning, acute hospital delirium Observe fall precaution CODE STATUS: Does not have the POA or living will Full CODE STATUS Disposition: Patient lives with her ex-, Has Aid service 63 hours a week For her ex- very difficult to provide care due to patient's underlying psychiatric issues, paranoia PT OT sujata requested Social service consulted for discharge planning Admission and Anticipated Discharge Date Admission Date: June 26, 2019 Subjective Awake and alert today, able to answer questions, Still noted to have occasional confusion, disorientation, Wants to see her dogs, Few initially patient was not very enthusiastic about talking for fluid intake, preventing dehydration, Later when she was mentioning her service dog, she changed her mind and wanted to get out and leave hospital right away Even after repeated counseling, patient states that she needs to go out to take care of her dogs Conversation went tangentially, saying that whole she and her son and her family members were having picnic on the parking lot She needs to go home to take care of all the family members:- Does not appear to be lucid enough to make decision regarding leaving AGAINST MEDICAL ADVICE Ordered for PRN Seroquel for agitation, Nursing to provide every 15 minutes check versus one-to-one for fall risk, Review of Systems Psychiatric: + behavioral changes (Agitated,), + confusion and + paranoia Physical Exam Constitutional: + thin Eyes: + anicteric sclerae ENMT: Mouth: + oral mucosal abnormality Neck: trachea midline, no thyromegaly Respiratory: normal respiratory effort, lungs clear to auscultation Cardiovascular: RRR, no murmur, no edema Gastrointestinal (Abdomen): Inspection/Auscultation: normal bowel sounds Percussion/Palpation: abdomen soft; abdomen nontender Musculoskeletal: Head/Neck/Chest: normocephalic and head atraumatic Neurologic: moves all extremities; no focal motor deficits Psychiatric: Orientation: alert and oriented to person; + not oriented to place Speech: + pressured speech Affect: + labile affect Thought Process: + tangential thought process Thought Content: + preoccupation Insight: + impaired insight Judgement: + severely impaired judgement Results & Data ([facility]) Vital Signs (Past 12 Hours) Vital Signs Temp Pulse Pulse Resp BP BP Pulse Ox 06/27/19 15:12 37.1 C 73 22 108/59 L 94 06/27/19 11:33 36.8 C 76 18 110/63 97 06/27/19 09:31 73 06/27/19 07:32 36.6 C 75 18 118/61 97 06/27/19 04:52 36.7 C 75 20 131/60 96
[2019-06-27] MEDS ORDERED: HALOPERIDOL LACTATE 5 MG/ML 1 ML VIAL IM STA (17:17)
[2019-06-27] MEDS ORDERED: HALOPERIDOL LACTATE 5 MG/ML 1 ML VIAL ONE (17:26)
[2019-06-27] MEDS: ROPINIROLE HCL 1 MG TABLET PO SCH (22:04)
[2019-06-27] MEDS: MONTELUKAST SODIUM 10 MG TABLET PO SCH (22:06)
[2019-06-27] MEDS: NSS + 20MEQ KCL 20 MEQ/1,000 ML BAG IV SCH (23:31)
[2019-06-28] MEDS: clonazePAM 1 MG TAB PO SCH ×2 (08:56→12:54)
[2019-06-28] MEDS: MEMANTINE HCL 10 MG TAB PO SCH (08:56)
[2019-06-28] MEDS: CHOLECALCIFEROL 1,000 UNITS 25 MCG TAB PO SCH (08:57)
[2019-06-28] MEDS: TOCOPHERYL, DL-ALPHA 400 UNITS CAP PO SCH (08:57)
[2019-06-28] MEDS: OMEGA-3 (PURIFIED FISH OIL) 1 GM CAP PO SCH (08:57)
[2019-06-28] MEDS: MAGNESIUM OXIDE 400 MG TAB PO SCH (08:57)
[2019-06-28] MEDS: POTASSIUM CITRATE 10 MEQ TAB PO SCH (08:58)
[2019-06-28] MEDS: dilTIAZem HCL 120 MG CAPCR PO SCH (08:58)
[2019-06-28] MEDS: TIZANIDINE HCL 4 MG TABLET PO SCH ×2 (08:58→14:39)
[2019-06-28] MEDS: ASPIRIN 81 MG ECTAB PO SCH (08:58)
[2019-06-28] MEDS: ASCORBIC ACID 500 MG TAB PO SCH ×2 (08:59→12:55)
[2019-06-28] MEDS ORDERED: ARMOUR THYROID 30 MG TAB PO SCH (09:00)
[2019-06-28] MEDS: LACTOBACILLUS ACIDOPHILUS (FLORANEX) TAB PO SCH ×2 (09:00→12:54)
[2019-06-28] MEDS: CEROVITE ADV FORMULA TAB PO SCH (09:00)
[2019-06-28] MEDS: NSS + 20MEQ KCL 20 MEQ/1,000 ML BAG IV SCH (09:01)
[2019-06-28] MEDS: modafiniL 100 MG TAB PO SCH (09:04)
[2019-06-28] MEDS: FLUTICASONE PROPIONATE NA SPR 16 GM BTL NAE SCH (09:07)
[2019-06-28] MEDS: cefTRIAXone SODIUM 2,000 MG in DEXTROSE 5% 50 ML IV SCH (09:18)
[2019-06-28] MEDS: VITAMIN B COMPLEX TAB PO SCH (09:19)
--- NOTE | 2019-06-28 12:06 | Hospitalist Progress Note ---
Date of Service June 28, 2019 Assessment & Plan (1) Dehydration: Admitted with failure to thrive, severe dehydration, very poor intake, had only few full of applesauce in last 2 days clinically recovered normal vitals pt is now awake and alert , conversing appropriately , no agitation or confusion , baseline paranoia /no hallucination mental status appears to approx baseline Positive UA: Urine nitrite positive, positive ketone, negative urine leukocytosis treated with rocpephin urine culture : > 3 organisms , possible contamination given pt's clinical presentation with dehydration , urinary incontinence , confusion , metabolic encephalopathy symptom improved with IV abx and IV fluid will treat empirically for possible UTI , script given for 3 days of PO Ciprofloxacin Hypothyroidism: TSH elevated 7.2/possible sick thyroid symptoms Normal free T4 Confusion/delirium/metabolic encephalopathy Possible secondary to relation of dehydration/UTI mental status improved to baseline after Abx and IV fluid tx History of schizoaffective disorder: with possible underlying Paranoia has Aid services gets 7-9 hrs/day care givers per Care givers -pt refuses care-refused to clean up , bath , eat or take her medications intermittently pt is counselled regarding adequate hydration , hygiene , healthy life style -pt reports she does not trust any one , CODE STATUS: Does not have the POA or living will Full CODE STATUS Disposition: Patient lives with her ex-, Has Aid service 63 hours a week For her ex- very difficult to provide care due to patient's underlying psychiatric issues, paranoia Social service consulted for discharge planning appreciate input pt is medically stable to be discharged from hospital and resume prior services at home Admission and Anticipated Discharge Date Admission Date: June 26, 2019 Subjective awake and alert no sign of confusion ambulating independently appetite fair no fever or chills feels well enough to be discharged home Review of Systems Review of Systems: All systems reviewed & are unremarkable except as noted in HPI & below Constitutional: no fever, no chills and no fatigue Psychiatric: no confusion Physical Exam Constitutional: + thin Eyes: + anicteric sclerae ENMT: Mouth: + oral mucosal abnormality Neck: trachea midline, no thyromegaly Respiratory: normal respiratory effort, lungs clear to auscultation Cardiovascular: RRR, no murmur, no edema Gastrointestinal (Abdomen): Inspection/Auscultation: normal bowel sounds Percussion/Palpation: abdomen soft; abdomen nontender Musculoskeletal: Head/Neck/Chest: normocephalic and head atraumatic Skin: + abnormal turgor (Extremely dry, very poor skin turgor) Neurologic: moves all extremities; no focal motor deficits Psychiatric: Orientation: alert and oriented x 3 Affect: + flat affect Insight: + poor insight Judgement: + poor judgement Results & Data ([facility]) Vital Signs (Past 12 Hours) Vital Signs Temp Pulse Pulse Resp BP BP Pulse Ox 06/28/19 11:00 36.9 C 71 16 105/56 L 97 06/28/19 07:25 65 06/28/19 07:00 37.1 C 68 16 132/71 95 06/28/19 03:55 36.7 C 71 18 111/65 95 06/28/19 01:04 82
[2019-06-28] MEDS ORDERED: CIPROFLOXACIN 500 MG TAB PO SCH (12:30)
[2019-06-28] MEDS ORDERED: PATIENT'S HEIGHT AND/OR WEIGHT NEEDED SCH (12:30)
[2019-06-28 13:45] LABS: BUN Creatinine Ratio 23.8 (10-20); Calcium 8.9 mg/dl (8.5-10.1); Creatinine Clr Calc Pharmacy 76.2 ml/min; Est GFR (African American) 112.3; Est GFR (Non-African American) 96.9; Potassium 3.9 mmol/L (3.5-5.1)
--- NOTE | 2019-06-28 23:48 | Discharge Summary ---
Date of Service June 28, 2019 Admission HPI Per Admitting Provider This is a 64-year-old female who was found at home confused, lying in her urine, Information obtained from patient's ex- was present at bedside, patient was too confused, delirious to provide any meaningful history As per the , they have been for a long time ago, patient still lives in the same house, works, but provides care when at home Patient also has aid help with ADLs Patient's ex- helped with her meal day before yesterday, changed bed linens and padding(patient is incontinent at baseline) Patient stayed in bed yesterday, aide came to visit her, patient said that she was doing okay and refused help This morning she was found to be confused and lethargic, was brought to the ER Patient clinically appears to be very dehydrated, UA positive Will be admitted to medical floor for IV hydration, IV antibiotic Principal Diagnosis DEHYDRATION /UTI/CONFUSION /METABOLIC ENCEPHALOPATHY Discharge Exam Constitutional + thin Eyes + anicteric sclerae ENMT Mouth: + oral mucosal abnormality Neck trachea midline, no thyromegaly Respiratory normal respiratory effort, lungs clear to auscultation Cardiovascular RRR, no murmur, no edema Gastrointestinal (Abdomen) Inspection/Auscultation: normal bowel sounds Percussion/Palpation: abdomen soft; abdomen nontender Musculoskeletal Head/Neck/Chest: normocephalic and head atraumatic Skin + abnormal turgor (Extremely dry, very poor skin turgor) Neurologic moves all extremities; no focal motor deficits Psychiatric Orientation: alert and oriented x 3 Speech: + pressured speech Affect: + flat affect Thought Process: + tangential thought process Thought Content: + preoccupation Insight: + poor insight Judgement: + poor judgement Discharge Data Allergies Allergy/AdvReac Type Severity Reaction Status Date / Time codeine Allergy Mild HIVES Verified 06/26/19 14:29 morphine Allergy Mild "CAUSES Verified 06/26/19 14:29 RAGE" paroxetine Allergy Mild "ANGER Verified 06/26/19 14:29 ISSUES" venlafaxine Allergy Mild "ANGER Verified 06/26/19 14:29 ISSUES" alendronate sodium Allergy Unknown "LITIGATION LEGAL SECRETARY Verified 06/26/19 14:29 DOES NOT WANT ME TO USE" capsaicin Allergy Unknown "RISK FOR Verified 06/26/19 14:29 GI ULCERS" celecoxib Allergy Unknown "RISK FOR Verified 06/26/19 14:29 GI ULCERS" citalopram Allergy Unknown HALLUCINATI Verified 06/26/19 14:29 ONS dexamethasone Allergy Unknown DIDN'T Verified 06/26/19 14:29 WORK ON PAIN-AGGRAVATED PAIN Diclopak Allergy Unknown "RISK FOR Verified 11/15/16 09:27 GI ULCERS" diflunisal Allergy Unknown "RISK FOR Verified 06/26/19 14:29 GI ULCERS" etodolac Allergy Unknown RISK FOR Verified 06/26/19 14:29 GI UPSET etofamide Allergy Unknown "RISK FOR Verified 06/26/19 14:29 GI ULCERS" fenoprofen Allergy Unknown UNKNOWN Verified 06/26/19 14:29 gabapentin Allergy Unknown ANAPHYLAXIS, Verified 06/26/19 14:29 ITCHING, AND VOMITING indomethacin Allergy Unknown RISK FOR Verified 06/26/19 14:29 GI BLEED iodine Allergy Unknown RASH Verified 06/26/19 14:29 ketoprofen Allergy Unknown UNKNOWN Verified 06/26/19 14:29 milnacipran Allergy Unknown KNOCKS ME Verified 06/26/19 14:29 OUT nabumetone Allergy Unknown "RISK FOR Verified 06/26/19 14:29 GI ULCERS" NSAIDS (Non-Steroidal Allergy Unknown "RISK FOR Verified 06/26/19 14:29 Anti-Inflamma ULCERS" oxaprozin Allergy Unknown "RISK FOR Verified 06/26/19 14:29 GI ULCERS" peanut oil Allergy Unknown ANAPHYLAXIS,PROJECTILE Verified 06/26/19 14:29 VOMITING piroxicam Allergy Unknown "RISK FOR Verified 06/26/19 14:29 GI ULCERS" risedronate sodium Allergy Unknown "LITIGATION LEGAL SECRETARY Verified 06/26/19 14:29 DOES NOT WANT ME TO USE" soy Allergy Unknown unknown Verified 06/26/19 14:29 sulindac Allergy Unknown "RISK FOR Verified 06/26/19 14:29 GI ULCERS" tolmetin Allergy Unknown "RISK FOR Verified 06/26/19 14:29 GI ULCERS" amlodipine Allergy Verified 06/26/19 14:29 Glynn And Derivatives Allergy Verified 06/26/19 14:29 diclofenac Allergy Verified 06/26/19 14:29 flurbiprofen Allergy Verified 06/26/19 14:29 ibuprofen Allergy Verified 06/26/19 14:29 Iodine and Iodide Containing Allergy Verified 06/26/19 14:29 Produc ketorolac Allergy Verified 06/26/19 14:29 mefenamic acid Allergy Verified 06/26/19 14:29 meloxicam Allergy Verified 06/26/19 14:29 Opioids - Morphine Analogues Allergy Verified 06/26/19 14:29 pregabalin [From Lyrica] Allergy Verified 06/26/19 14:29 sertraline [From Zoloft] Allergy Verified 06/26/19 14:29 sodium phosphate Allergy Verified 06/26/19 14:29 blueberry AdvReac Unknown Verified 06/27/19 08:33 procaine AdvReac Unknown " I don't Verified 06/26/19 14:29 get numb" Aromatic Oils Allergy Unknown ANY WITH Uncoded 06/26/19 14:29 FLAVOR OR AROMA-CAN'T BREATHE NAUSEA AND VOMITNG Chloride Allergy Unknown "SHUTS OFF Uncoded 06/26/19 14:29 THYROID MEDICINE AND END UP IN PSYCH [facility]" Opioid Analgesics AdvReac Unknown "BLACKS Uncoded 06/26/19 14:29 OUT" Consultations 06/26/19 14:57 ED Decision to Admit Stat 06/26/19 17:00 Consult Case Management - Discharge Planning Routine Ordered Studies 06/26/19 13:17 CT head/brain wo con Stat Hospital Course (1) Dehydration: Admitted with failure to thrive, severe dehydration, very poor intake, had only few full of applesauce in last 2 days clinically recovered normal vitals pt is now awake and alert , conversing appropriately , no agitation or confusion , baseline paranoia /no hallucination mental status appears to approx baseline Positive UA: Urine nitrite positive, positive ketone, negative urine leukocytosis treated with rocpephin urine culture : > 3 organisms , possible contamination given pt's clinical presentation with dehydration , urinary incontinence , confusion , metabolic encephalopathy symptom improved with IV abx and IV fluid will treat empirically for possible UTI , script given for 3 days of PO Ciprofloxacin Hypothyroidism: TSH elevated 7.2/possible sick thyroid symptoms Normal free T4 Confusion/delirium/metabolic encephalopathy Possible secondary to relation of dehydration/UTI mental status improved to baseline after Abx and IV fluid tx History of schizoaffective disorder: with possible underlying Paranoia has Aid services gets 7-9 hrs/day care givers per Care givers -pt refuses care-refused to clean up , bath , eat or take her medications intermittently pt is counselled regarding adequate hydration , hygiene , healthy life style -pt reports she does not trust any one , CODE STATUS: Does not have the POA or living will Full CODE STATUS Disposition: Patient lives with her ex-, Has Aid service 63 hours a week For her ex- very difficult to provide care due to patient's underlying psychiatric issues, paranoia Social service consulted for discharge planning appreciate input pt is medically stable to be discharged from hospital and resume prior services at home Total Time Total Time Spent Total Time Spent (In Minutes): approx 40 mins Total Time Includes: Examination of the Patient, Discharge Planning and Medication Reconciliation Discharge Plan Discharge Items Patient Disposition: Home - Home Health Services Reason For Visit: DEHYDRATION,CONFUSION,UTI Discharge Diagnosis: DEHYDRATION /UTI/CONFUSION /METABOLIC ENCEPHALOPATHY Activity: Resume your previous activity Non-emergency contact: Primary Care Provider Call non-emergency contact if: you have any medication questions Follow-up/Referrals: Dejuan Vilchis MD [Primary Care Provider] - 07/02/19 10:45 am (IF YOU NEED TO RESCHEDULE THIS APPOINTMENT, PLEASE CALL EITHER [phone]. YOUR APPOINTMENT WILL BE WITH DR CALDERON DR VILCHIS IS OUT OF THE OFFICE) Diet: Regular Addtl Attending Provider Instructions: Hospital follow up with Dr Michael , family physician on 07/02/19 please keep yourself hydrated - Pending Studies at Discharge: No Stand-Alone Forms: My [facility] [employer], Smoking Cessation Medications and DC Order Prescriptions: New ciprofloxacin HCl 500 mg tablet 500 mg PO BID 3 Days Qty: 6 RF: 0 Continued clonazepam 1 mg tablet 1 mg PO QID 90 Days Qty: 360 RF: 1 ropinirole 4 mg tablet 4 mg PO HS Qty: 30 RF: 0 vitamin B complex capsule 1 cap PO DAILY RF: 0 memantine 10 mg tablet 10 mg PO BID RF: 0 garlic 1,250 mg tablet 3,000 mg PO DAILY RF: 0 ascorbic acid (vitamin C) 1,000 mg tablet 1 gm PO QID RF: 0 cholecalciferol (vitamin D3) 1,000 unit capsule 1,000 units PO DAILY RF: 0 Prolia 60 mg/mL syringe 60 mg SQ Q3M RF: 0 tin (Zingiber officinalis) 550 mg capsule 550 mg PO QID RF: 0 Lactobacillus acidophilus 1 billion cell tablet 1 cell PO DAILY RF: 0 magnesium oxide 400 mg (241.3 mg magnesium) tablet 400 mg PO DAILY RF: 0 montelukast [Singulair] 10 mg tablet 10 mg PO DAILY RF: 0 omega-3 acid ethyl esters 1 gram capsule 1 cap PO QID RF: 0 potassium citrate 15 mEq tablet extended release 15 meq PO DAILY RF: 0 vitamin E succinate 400 unit tablet 400 units PO DAILY RF: 0 tizanidine 4 mg tablet 4 mg PO TID RF: 0 Alive Once Daily Women 50 Plus 800-100 mcg tablet 1 tab PO DAILY RF: 0 mometasone [Nasonex] 50 mcg/actuation spray,non-aerosol 2 sprays intranasal DAILY RF: 0 modafinil 200 mg tablet 400 mg PO DAILY RF: 0 thyroid (pork) 90 mg tablet 90 mg PO MOWEFR RF: 0 thyroid (pork) 60 mg tablet 60 mg PO SUTUTHSA RF: 0 aspirin 81 mg Tablet,Delayed Release (Dr/Ec) 81 mg PO DAILY RF: 0 diltiazem HCl [Cartia XT] 120 mg capsule,extended release 24hr 120 mg PO DAILY RF: 0 Discharge Orders: Discharge Order (Routine); Ordered 06/28/19 Ordered By: Patsy Mike/Other Patient Handouts: Dehydration, ED Dehydration Inf Td Admission Data Admit Date/Time: 06/26/19 15:47 Attending Provider: Patsy Negrete Admit Provider: Patsy Negrete Primary Care Provider: Dejuan Vilchis Other Providers: Jerilyn Flores Other Interventions: Discharge Summary Assessment (RN) Last Done: 06/28/19 13:49 DC Date/Time DO NOT enter until pt leaves facility: 06/28/19 17:04
== END 2019-06-28 17:04 | disposition home or self-care (01) | DRG 640 ==
LOC: ED 13:01 → 2W 15:47